=== PATIENT | female | born 1940 | race Caucasian/White ===

== ENCOUNTER 2022-10-25 17:27 | Emergency (ER) | payer MEDICARE, BC ==
[2022-10-25] MEDS ORDERED: traMADol 50 MG Tab PO ONE ×2 (17:28→17:59)
== END 2022-10-25 19:33 | disposition home or self-care (01) ==
LOC: FB.ED 17:27 → MERGE 17:27 → EDBD 17:27 → FB.ED 19:33
DX: S89.91XA Unspecified injury of right lower leg, initial encounter (principal); M17.11 Unilateral primary osteoarthritis, right knee; E78.00 Pure hypercholesterolemia, unspecified; I10 Essential (primary) hypertension; Z79.899 Other long term (current) drug therapy; X50.9XXA Other and unspecified overexertion or strenuous movements or postures, initial encounter
CPT/HCPCS: 73562; 99283; A9270